=== PATIENT | male | born 1970 | race African-American/Black ===

== ENCOUNTER 2022-02-06 19:26 | Emergency (ER) | payer SELFPAY ==
[~2022-02-06] VITALS: Ht 175.3 cm; Wt 73.0 kg
[2022-02-06 20:00] VITALS: BP 122/78
== END 2022-02-06 22:32 | disposition home or self-care (01) ==
LOC: ER 19:26
DX: E10.65 Type 1 diabetes mellitus with hyperglycemia (principal); R03.0 Elevated blood-pressure reading, without diagnosis of hypertension; Z79.4 Long term (current) use of insulin
CPT/HCPCS: 82962; 99283